=== PATIENT | male | born 1980 | race Caucasian/White ===

== ENCOUNTER 2019-08-09 10:21 | Emergency (ER) | payer SELFPAY ==
[~2019-08-09] VITALS: Ht 175.2 cm; Wt 721.2 kg
[2019-08-09] MEDS ORDERED: Motrin,Rufen800 MG PO (11:31)
== END 2019-08-09 11:35 | disposition home or self-care (01) ==
LOC: ED 10:21
DX: S20.211A Contusion of right front wall of thorax, initial encounter (principal); F17.200 Nicotine dependence, unspecified, uncomplicated; Z88.0 Allergy status to penicillin; X50.1XXA Overexertion from prolonged static or awkward postures, initial encounter; Y93.89 Activity, other specified; Y92.89 Other specified places as the place of occurrence of the external cause; Y99.8 Other external cause status